=== PATIENT | female | born 1955 | race Caucasian/White ===

== ENCOUNTER 2017-04-17 19:44 | Emergency (ER) | payer BC ==
[~2017-04-17] VITALS: Ht 165.1 cm; Wt 106.1 kg
[~2017-04-17 19:44] MED LIST: ASPIR LOW81 MG PO; BUDEPRION SR150 M1 PO; FLEXERIL5 MG PO; GLIMEPIRIDE4 MG PO; HYDROCODONE BIT1 T11 PO; JANUVIA100 MG PO; PERINDOPRIL ERBU4 MG PO; PREDNICOT20 MG PO; REQUIP2 MG PO; [UNRECOGNIZED DRUG - REMARK]
[2017-04-17 20:19] VITALS: BP 143/65
[2017-04-17 20:55] LABS: BASO # 0.1 10*3/uL (0.0-0.1); BASO % 0.4 % (0.0-1.0); EOS # 0.2 10*3/uL (0.0-0.4); HEMOGLOBIN 14.5 g/dl (12.0-16.0); LYMPH # 2.3 10*3/uL (1.3-4.4); LYMPH % 13.6 % (27.0-41.0); MEAN CELL VOLUME 86.2 fl (81.0-99.0); MEAN CORPUSCULAR HGB 29.8 pg (27.0-31.0); MEAN CORPUSCULAR HGB CONC 34.5 g/dl (33.0-37.0); MEAN PLATELET VOLUME 10.3 fl (9.6-12.3); MONO # 0.5 10*3/uL (0.1-1.0); NEUT # 13.8 10*3/uL (2.3-7.9); NEUT % 81.3 % (47.0-73.0); PLATELET COUNT AUTOMATED 272 10*3/uL (130-400); RED BLOOD COUNT 4.87 10*6/uL (4.10-5.10); RED CELL DISTRI WIDTH 14.3 % (0-14.5); WHITE BLOOD COUNT 16.9 10*3/uL (4.8-10.8)
[2017-04-17 21:12] LABS: ALBUMIN 3.4 gm/dl (3.1-4.5); CREATININE 1.33 mg/dL (0.55-1.02); POTASSIUM 4.4 mmol/L (3.5-5.1); TOTAL PROTEIN 7.7 gm/dL (6.4-8.2)
[2017-04-17] MEDS ORDERED: SEPTDS PO (22:15)
== END 2017-04-17 22:20 | disposition home or self-care (01) ==
LOC: ED 19:44
PROVIDERS: Nurse Practitioner Family
DX: S40.022A Contusion of left upper arm, initial encounter (principal); Z88.0 Allergy status to penicillin; Z79.82 Long term (current) use of aspirin; Z79.899 Other long term (current) drug therapy; W19.XXXA Unspecified fall, initial encounter; Y93.89 Activity, other specified; Y92.89 Other specified places as the place of occurrence of the external cause; Y99.8 Other external cause status

== ENCOUNTER → 2017-04-27 | Outpatient (CLI) | payer BC ==
[~2017-04-27] MED LIST changes: +SEPTDS PO
== END | disposition home or self-care (01) ==
LOC: WOUNDCARE 00:41
DX: S51.802D Unspecified open wound of left forearm, subsequent encounter (principal); L02.414 Cutaneous abscess of left upper limb; L03.114 Cellulitis of left upper limb; I10 Essential (primary) hypertension; E10.9 Type 1 diabetes mellitus without complications; F32.9 Major depressive disorder, single episode, unspecified; X58.XXXD Exposure to other specified factors, subsequent encounter

== ENCOUNTER → 2017-05-01 | Outpatient (CLI) | payer BC | END | disposition home or self-care (01) | LOC: WOUNDCARE 03:56 | DX: L02.414 Cutaneous abscess of left upper limb (principal); L03.114 Cellulitis of left upper limb; I10 Essential (primary) hypertension; E10.9 Type 1 diabetes mellitus without complications; F32.9 Major depressive disorder, single episode, unspecified ==

== ENCOUNTER → 2017-05-11 | Outpatient (CLI) | payer BC | END | disposition home or self-care (01) | LOC: WOUNDCARE 00:33 | DX: L02.414 Cutaneous abscess of left upper limb (principal); I10 Essential (primary) hypertension; E10.9 Type 1 diabetes mellitus without complications; F32.9 Major depressive disorder, single episode, unspecified ==

== ENCOUNTER 2017-07-31 09:58 | Emergency (ER) | payer BC ==
[~2017-07-31] VITALS: Ht 157.4 cm; Wt 106.6 kg
[2017-07-31 09:58] VITALS: BP 153/91
[2017-07-31 10:51] LABS: BASO % 0.3 % (0.0-1.0); EOS # 0.2 10*3/uL (0.0-0.4); EOS % 1.3 % (1.0-4.0); HEMATOCRIT 43.5 % (37.0-47.0); HEMOGLOBIN 14.7 g/dl (12.0-16.0); LYMPH % 21.4 % (27.0-41.0); MEAN CELL VOLUME 85.1 fl (81.0-99.0); MEAN CORPUSCULAR HGB 28.8 pg (27.0-31.0); MEAN CORPUSCULAR HGB CONC 33.8 g/dl (33.0-37.0); MEAN PLATELET VOLUME 10.1 fl (9.6-12.3); MONO # 0.6 10*3/uL (0.1-1.0); MONO % 4.1 % (3.0-9.0); NEUT # 10.1 10*3/uL (2.3-7.9); NEUT % 72.4 % (47.0-73.0); PLATELET COUNT AUTOMATED 272 10*3/uL (130-400); RED BLOOD COUNT 5.11 10*6/uL (4.10-5.10); RED CELL DISTRI WIDTH 13.9 % (0-14.5); WHITE BLOOD COUNT 13.9 10*3/uL (4.8-10.8)
[2017-07-31 11:00] LABS: ACT PARTIAL THROMBO TIME 20.1 SECONDS (20.8-31.5); INTERNATIONAL NORM RATIO 0.9 (2.0-3.5)
[2017-07-31 11:06] LABS: ALBUMIN 3.8 gm/dl (3.1-4.5); ALKALINE PHOSPHATASE 104 U/L (45-117); BUN 13 mg/dl (7-24); CHLORIDE 99 mmol/L (98-107); CREATININE 0.97 mg/dL (0.55-1.02); POTASSIUM 4.2 mmol/L (3.5-5.1); SGOT/AST 24 IU/L (3-35); SGPT/ALT 29 U/L (12-78); SODIUM 134 mmol/L (136-145); TOTAL PROTEIN 7.8 gm/dL (6.4-8.2)
[2017-07-31 11:20] LABS: BILIRUBIN NEGATIVE (NEGATIVE); BLOOD 3+ (NEGATIVE); CLARITY CLOUDY (CLEAR); COLOR RED (YELLOW); GLUCOSE 3+ (NEGATIVE); KETONE 1+ (NEGATIVE); NITRITE NEGATIVE (NEGATIVE); SPECIFIC GRAVITY >= 1.030 (1.005-1.030)
[2017-07-31 11:27] LABS: LEUKO ESTERASE NEGATIVE (NEGATIVE); RBC TNTC rbc/hpf (0-2)
== END 2017-07-31 15:23 | disposition home or self-care (01) ==
LOC: ED 09:58
PROVIDERS: Emergency Medicine
DX: N93.8 Other specified abnormal uterine and vaginal bleeding (principal); R10.31 Right lower quadrant pain; E11.9 Type 2 diabetes mellitus without complications; Z98.890 Other specified postprocedural states; Z79.82 Long term (current) use of aspirin; Z79.899 Other long term (current) drug therapy; Z88.0 Allergy status to penicillin

== ENCOUNTER 2018-05-09 19:26 | Inpatient (IN) | payer BC ==
[~2018-05-09] VITALS: Ht 149.9 cm; Wt 100.4 kg
--- NOTE | ~2018-05-09 | EKG ---
[place], [place] ELECTROCARDIOGRAM REPORT NAME: JOSÉ MIGUEL ESTRADA UNIT #: [id number] ROOM: 518 DOCTOR: AMINTA DRAFT REPORT BIRTHDATE: [birth year] [facility] Test Date: 2018-05-09 Test Time: 21:54:56 Pat Name: JOSÉ MIGUEL ESTRADA Department: Room: 518 Gender: F Safety Attendant: EKG.NH : 1955 Requested By: JUSTINE CRUZ Order Number: [id number] Reading MD: Emily Torres MD Measurements Intervals [place] Rate: 100 P: 62 [place]: 186 QRS: 31 QRSD: 65 T: QT: 332 QTc: 429 Interpretive Statements Sinus tachycardia Supraventricular bigeminy Nonspecific T abnormalities, lateral leads Electronically Signed On 05-10-2018 15:31:46 PST by Emily Torres MD CM:EKGRPT:ELECTROCARDIOGRAM REPORT 1531 JUSTINE CRUZ EPIPHANY DRAFT REPORT JUSTINE CRUZ
--- NOTE | ~2018-05-09 | EKG ---
[place], [place] ELECTROCARDIOGRAM REPORT NAME: JOSÉ MIGUEL ESTRADA UNIT #: [id number] ROOM: 518 DOCTOR: AMINTA DRAFT REPORT BIRTHDATE: [birth year] [facility] Test Date: 2018-05-11 Test Time: 00:21:14 Pat Name: JOSÉ MIGUEL ESTRADA Department: Room: 518 1 Gender: F [place] Head: : 1955 Requested By: TOMER ROCKWELL Order Number: [id number] Reading MD: Emily Torres MD Measurements Intervals [place] Rate: 81 P: 57 [place]: 205 QRS: 27 QRSD: 64 T: 2 QT: 379 QTc: 440 Interpretive Statements Sinus rhythm Borderline T abnormalities, inferior leads Baseline wander in lead(s) V4 Compared to ECG 05/10/2018 07:07:15 Atrial premature complex(es) no longer present T-wave abnormality still present Electronically Signed On 05-11-2018 15:59:01 PST by Emily Torres MD CM:EKGRPT:ELECTROCARDIOGRAM REPORT 0021 1559 TOMER POE DRAFT REPORT TOMER ROCKWELL DO
--- NOTE | ~2018-05-09 | EKG ---
[place], [place] ELECTROCARDIOGRAM REPORT NAME: JOSÉ MIGUEL ESTRADA UNIT #: [id number] ROOM: 518 DOCTOR: AMINTA DRAFT REPORT BIRTHDATE: [birth year] [facility] Test Date: 2018-05-10 Test Time: 07:07:15 Pat Name: JOSÉ MIGUEL ESTRADA Department: Room: 518 1 Gender: F [place] Man: Coreen Larose : 1955 Requested By: JUSTINE CRUZ Order Number: [id number] Reading MD: Emily Torres MD Measurements Intervals [place] Rate: 84 P: 56 [place]: 200 QRS: 29 QRSD: 61 T: -5 QT: 370 QTc: 438 Interpretive Statements Sinus rhythm Atrial premature complex Borderline T abnormalities, inferior leads No previous ECG available for comparison Electronically Signed On 05-10-2018 15:34:25 PST by Emily Torres MD CM:EKGRPT:ELECTROCARDIOGRAM REPORT 1534 JUSTINE LEMOS DRAFT REPORT JUSTINE CRUZ
[2018-05-09 19:28] VITALS: BP 123/66
--- NOTE | 2018-05-09 20:01 | NUR ---
PATIENT STATES THAT SHE DOES NOT FEEL THE URGE TO VOID AT THIS TIME AND WISHES TO TAKE IN SOME IV FLUIDS PRIOR TO ATTEMPTING URINATION
[2018-05-09 20:06] LABS: HEMATOCRIT 42.7 % (37.0-47.0); HEMOGLOBIN 14.4 g/dl (12.0-16.0); MEAN CELL VOLUME 87.3 fl (81.0-99.0); MEAN CORPUSCULAR HGB 29.4 pg (27.0-31.0); MEAN CORPUSCULAR HGB CONC 33.7 g/dl (33.0-37.0); PLATELET COUNT AUTOMATED 178 10*3/uL (130-400); RED BLOOD COUNT 4.89 10*6/uL (4.10-5.10); RED CELL DISTRI WIDTH 14.3 % (0-14.5); WHITE BLOOD COUNT 17.9 10*3/uL (4.8-10.8)
[2018-05-09 20:30] LABS: ALBUMIN 3.3 gm/dl (3.1-4.5); ALKALINE PHOSPHATASE 84 U/L (45-117); BUN 17 mg/dl (7-24); CHLORIDE 102 mmol/L (98-107); CREATININE 0.85 mg/dL (0.55-1.02); LIPASE 87 U/L (73-393); POTASSIUM 3.8 mmol/L (3.5-5.1); SGOT/AST 19 IU/L (3-35); SGPT/ALT 22 U/L (12-78); SODIUM 136 mmol/L (136-145); TOTAL PROTEIN 7.6 gm/dL (6.4-8.2)
[2018-05-09 20:43] LABS: ATYPICAL LYMPHS 1 % (0-0); BASOPHILS 1 % (0-1); TOTAL CELLS COUNTED 100 #CELLS
[2018-05-09 20:44] LABS: PLATELET SUFFICIENCY NORMAL (NORMAL)
--- NOTE | 2018-05-09 20:47 | NUR ---
PATIENT STATES SHE STILL DOES NOT FEEL THE URGE TO VOID. DOES NOT WANT CATHETERIZATION.
[2018-05-09 21:34] LABS: BILIRUBIN NEGATIVE (NEGATIVE); BLOOD NEGATIVE (NEGATIVE); CLARITY CLEAR (CLEAR); COLOR YELLOW (YELLOW); GLUCOSE 2+ (NEGATIVE); KETONE 1+ (NEGATIVE); LEUKO ESTERASE NEGATIVE (NEGATIVE); NITRITE NEGATIVE (NEGATIVE); SPECIFIC GRAVITY 1.015 (1.005-1.030); UROBILINOGEN 0.2 E.U./dl (0.2-1.0)
[2018-05-09 21:42] LABS: BACTERIA 1+; EPITHELIAL CELLS 16-20; YEAST TRACE
[2018-05-09 22:35] VITALS: BP 130/52
--- NOTE | 2018-05-09 22:35 | NUR ---
A 62, admitted to 5E, under the services of TOMER Álvarez DO with a diagnosis of INTRACTABLE VOMITING/DEHYDRATION. Chief complaint is MULTIPLE COMPLAINTS. Patient arrived via stretcher from ER. Monitor applied. Initial assessment completed. Vital signs taken and recorded. TOMER ÁLVAREZ DO notified of admission to the unit. Orders received. See assessment for past medical history, medications and allergies. Patient and/or family oriented to unit. visitation policy reviewed. Clothing/patient valuable form completed. LISA FISHER
--- NOTE | 2018-05-09 23:15 | NUR ---
PRN TORADOL GIVEN FOR C/O EARACHE AND TYLENOL FOR TEMP OF 101.2, PATIENT TOLERATED WELL. CALL LIGHT IS WITHIN REACH.
[2018-05-10] VITALS: BP 118/52
[2018-05-10] MEDS ORDERED: ROPINIROLE HCL5 MG PO (00:17)
[2018-05-10] MEDS ORDERED: LANTUS SOL100 UNIT/1 SQ (00:19)
[2018-05-10] MEDS ORDERED: REQUIP5 MG PO (00:26)
--- NOTE | 2018-05-10 00:33 | NUR ---
MED REC UP TO DATE, DR. CRUZ AWARE. PATIENT IS ALSO REQUESTING NIGHT TIME REQUIP. SEE NEW ORDERS.
--- NOTE | 2018-05-10 03:41 | NUR ---
TEMP 98.8 ORAL.
[2018-05-10 07:41] LABS: BASO % 0.2 % (0.0-1.0); HEMATOCRIT 42.3 % (37.0-47.0); LYMPH # 1.3 10*3/uL (1.3-4.4); MEAN CELL VOLUME 88.9 fl (81.0-99.0); MEAN CORPUSCULAR HGB 29.4 pg (27.0-31.0); MEAN CORPUSCULAR HGB CONC 33.1 g/dl (33.0-37.0); MONO # 0.7 10*3/uL (0.1-1.0); MONO % 4.5 % (3.0-9.0); NEUT # 13.6 10*3/uL (2.3-7.9); NEUT % 86.9 % (47.0-73.0); PLATELET COUNT AUTOMATED 145 10*3/uL (130-400); RED BLOOD COUNT 4.76 10*6/uL (4.10-5.10); RED CELL DISTRI WIDTH 14.6 % (0-14.5); WHITE BLOOD COUNT 15.7 10*3/uL (4.8-10.8)
--- NOTE | 2018-05-10 08:08 | NUR ---
Nursing screen received and chart review completed. Patient admitted with vomitting, diarrhea and fever. At this time no OT indicated d/t illness. If patient declines in ADLs or safety in functional mobility, consider OT carlita. Megan Erwin OTR/L
[2018-05-10 08:09] LABS: BUN 17 mg/dl (7-24); CHLORIDE 106 mmol/L (98-107); CREATININE 0.79 mg/dL (0.55-1.02); POTASSIUM 4.2 mmol/L (3.5-5.1); SODIUM 138 mmol/L (136-145)
[2018-05-10 08:12] LABS: ACT PARTIAL THROMBO TIME 25.1 SECONDS (20.8-31.5)
[2018-05-10 08:13] LABS: CHOLESTEROL 127 mg/dL (<200); FREE T4 1.21 ng/dl (0.76-1.46); HDL CHOLESTEROL 50 mg/dl (40-60); LDL CHOLESTEROL 53 mg/dL (9-159); PHOSPHOROUS 2.9 mg/dL (2.5-4.9); TRIGLYCERIDES 118 mg/dl (<150); VLDL CHOLESTEROL 24 mg/dL (6-40)
[2018-05-10 09:27] LABS: VITAMIN D, 25-HYDROXY 35.6 ng/mL (30-100)
[2018-05-10 12:00] VITALS: BP 102/58
--- NOTE | 2018-05-10 13:16 | NUR ---
Contact Lens Inspector in to talk to patient. Patient states lives at HOME with ALONE. There are BASEMENT steps in the home. Physician: KIMBERLY [facility] [place] health services: NONE Patient's level of ADLs: MINIMAL ASSIST Patient has working utilities: YES DME: NONE Follow-up physician's appointment after d/c: WILL BE MADE BY HOSPITALIST NURSE DIRECTOR ON DISCHARGE Does patient want to access PORTAL?: NO Discharge plan PT STATES SHE LIVES AT HOME ALONE WITH HER DAUGHTER HELPING HER. STATES SHE IS MOSTLY INDEPENDENT IN HIS CARE. PT STATES SHE IS GOING TO HAVE SPINE SURGERY IN [place] BUT HAS TO HAVE SOME PHYSICAL THERAPY WHICH IS ALREADY SET UP BEFORE GOING.PT STATES SHE PLANS TO RETURN HOME ON DISCHARGE WITH NO NEW NEEDS WILL CONTINUE TO FOLLOW. STATES SHE WILL HAVE A RIDE HOME. PEDRITO ALVAREZ
--- NOTE | 2018-05-10 14:47 | NUR ---
NOTIFIED DR GARCIA THAT PT WAS REQUESTING "REAL FOOD".ORDER RECIEVED.
[2018-05-10 16:00] VITALS: BP 113/47
[2018-05-10 20:00] VITALS: BP 118/60
--- NOTE | 2018-05-10 21:21 | NUR ---
BLOOD GLUCOSE 149.
--- NOTE | 2018-05-10 23:54 | NUR ---
PATIENT IS C/O SHORTNESS OF BREATH WITH CHEST PRESSURE AT THIS TIME. PULSE O2 89% ON ROOM AIR. UP TO 98% WITH 2L O2 VIA NASAL CANNULA. CALL PLACED TO DR. ALVAREZ AT THIS TIME REQUESTING TO COME SEE PATIENT.
[2018-05-11] VITALS: BP 140/63
[2018-05-11 00:57] LABS: BASO % 0.2 % (0.0-1.0); EOS % 0.2 % (1.0-4.0); HEMATOCRIT 37.3 % (37.0-47.0); HEMOGLOBIN 12.2 g/dl (12.0-16.0); LYMPH # 1.2 10*3/uL (1.3-4.4); MEAN CELL VOLUME 89.4 fl (81.0-99.0); MEAN CORPUSCULAR HGB 29.3 pg (27.0-31.0); MEAN CORPUSCULAR HGB CONC 32.7 g/dl (33.0-37.0); MEAN PLATELET VOLUME 9.9 fl (9.6-12.3); MONO # 0.7 10*3/uL (0.1-1.0); MONO % 4.3 % (3.0-9.0); NEUT # 13.1 10*3/uL (2.3-7.9); NEUT % 86.8 % (47.0-73.0); PLATELET COUNT AUTOMATED 150 10*3/uL (130-400); RED BLOOD COUNT 4.17 10*6/uL (4.10-5.10); RED CELL DISTRI WIDTH 14.5 % (0-14.5); WHITE BLOOD COUNT 15.1 10*3/uL (4.8-10.8)
[2018-05-11 01:23] LABS: BUN 18 mg/dl (7-24); CHLORIDE 106 mmol/L (98-107); CREATININE 0.59 mg/dL (0.55-1.02); POTASSIUM 4.1 mmol/L (3.5-5.1); SODIUM 138 mmol/L (136-145); TROPONIN I 0.019 ng/ml (<0.045)
[2018-05-11 06:35] LABS: HEMATOCRIT 39.1 % (37.0-47.0); HEMOGLOBIN 12.9 g/dl (12.0-16.0); MEAN CELL VOLUME 88.9 fl (81.0-99.0); MEAN CORPUSCULAR HGB 29.3 pg (27.0-31.0); MEAN PLATELET VOLUME 10.2 fl (9.6-12.3); PLATELET COUNT AUTOMATED 156 10*3/uL (130-400); RED CELL DISTRI WIDTH 14.3 % (0-14.5); WHITE BLOOD COUNT 11.3 10*3/uL (4.8-10.8)
[2018-05-11 06:59] LABS: BUN 18 mg/dl (7-24); CHLORIDE 104 mmol/L (98-107); CREATININE 0.62 mg/dL (0.55-1.02); POTASSIUM 4.6 mmol/L (3.5-5.1); SODIUM 137 mmol/L (136-145)
[2018-05-11 08:00] VITALS: BP 140/80
[2018-05-11 08:13] LABS: PLATELET SUFFICIENCY NORMAL (NORMAL); TOTAL CELLS COUNTED 100 #CELLS
--- NOTE | 2018-05-11 08:25 | NUR ---
Patient is tearful and showing signs of anxiety. She states "people have asked me if I take anything for anxiety but I don't." She is overwhelmed with her current health status. She becomes SOB. SpO2 is 97% on 2L.
--- NOTE | 2018-05-11 11:25 | NUR ---
PT CONTINUES TO DENY ANY HOME NEEDS ON DISCHARGE. WILL CONTINUE TO FOLLOW.
[2018-05-11 12:00] VITALS: BP 144/83
[2018-05-11 16:00] VITALS: BP 148/66
[2018-05-11 20:00] VITALS: BP 133/67
[2018-05-12] VITALS: BP 117/57
--- NOTE | 2018-05-12 01:25 | NUR ---
24 HR chart check completed.
[2018-05-12 06:53] LABS: BASO % 0.1 % (0.0-1.0); EOS % 0.3 % (1.0-4.0); HEMATOCRIT 39.3 % (37.0-47.0); HEMOGLOBIN 12.6 g/dl (12.0-16.0); LYMPH # 1.5 10*3/uL (1.3-4.4); LYMPH % 10.4 % (27.0-41.0); MEAN CELL VOLUME 88.9 fl (81.0-99.0); MEAN CORPUSCULAR HGB 28.5 pg (27.0-31.0); MEAN CORPUSCULAR HGB CONC 32.1 g/dl (33.0-37.0); MEAN PLATELET VOLUME 10.5 fl (9.6-12.3); MONO # 0.7 10*3/uL (0.1-1.0); NEUT % 83.7 % (47.0-73.0); PLATELET COUNT AUTOMATED 176 10*3/uL (130-400); RED BLOOD COUNT 4.42 10*6/uL (4.10-5.10); WHITE BLOOD COUNT 14.3 10*3/uL (4.8-10.8)
[2018-05-12 07:11] LABS: BUN 21 mg/dl (7-24); CHLORIDE 108 mmol/L (98-107); CREATININE 0.55 mg/dL (0.55-1.02); POTASSIUM 3.7 mmol/L (3.5-5.1); SODIUM 140 mmol/L (136-145)
--- NOTE | 2018-05-12 08:25 | NUR ---
Patient states that if she goes home today she will be right back in here tonight. She states that she was coughing all night long and cough was productive. Patient became tearful.
[2018-05-12 12:00] VITALS: BP 148/70
--- NOTE | 2018-05-12 15:44 | NUR ---
Spoke with Dr. Das to see if it was ok for patient to remove panel monitor to shower. Per physician, do to CT scan results he would rather her hold off on showering today.
[2018-05-12 17:26] VITALS: BP 147/78
[2018-05-12 20:00] VITALS: BP 142/76
--- NOTE | 2018-05-12 21:47 | NUR ---
Patient's SpO2 drops to 88% on RA while ambulating to toilet. Patient immediately rebounds to 98% on 2LNC.
--- NOTE | 2018-05-12 22:50 | NUR ---
Patients IV site is positional.
[2018-05-13] VITALS: BP 136/64
[2018-05-13 08:00] VITALS: BP 134/72
--- NOTE | 2018-05-13 10:57 | NUR ---
PHYSICAL THERAPY Nursing screen received. Chart review complete. Recommend normal daily mobility with nursing prn. If difficulties with mobilty arise, please order PT when medically appropriate. Thank you. Daisy Quintana,PT
[2018-05-13 12:00] VITALS: BP 148/64
[2018-05-13] MEDS ORDERED: DOXYCYCLINE100 M3 PO (12:34)
[2018-05-13] MEDS ORDERED: PREDNISONE10 MG PO (12:34)
[2018-05-13 16:00] VITALS: BP 132/65
[2018-05-13 20:00] VITALS: BP 128/67
[2018-05-14] VITALS: BP 159/90
--- NOTE | 2018-05-14 07:00 | NUR ---
BEDSIDE REPORT OTBAINED FROM JUAN-ALTAF. PATIENT IS RESTING IN BED, EYES CLOSED. NO S&S OF DISTRESS NOTED, RESP ARE ERND ON O2 2LPM NC. BED IS LOCKED IN LOWEST POSITION, CALL LIGHT LEFT WITHIN REACH.
[2018-05-14 08:00] VITALS: BP 132/78
--- NOTE | 2018-05-14 09:00 | NUR ---
ASSESS FOR HOME OXYGEN: ROOM AIR AT REST: SPO2 92% HR 116 RR 20 BP 132/78 ROOM AIR WITH AMBULATION: SPO2 87% HR 138 RR 26 SUPPLEMENTAL O2 AT 2L WITH AMBULATION: SPO2 93-95% HR 120-130 RR 24 RECOVERY ON 2L: SPO2 95% HR 112 RR 20 BP 149/76
--- NOTE | 2018-05-14 09:30 | NUR ---
IN TO SEE PATIENT AT BEDSIDE. STATES ITS OK FOR PATIENT TO TAKE OFF MONITORS FOR SHOWER.
--- NOTE | 2018-05-14 11:35 | NUR ---
PT CONTINUES TO DENY NEEDS ON DISCHARGE. WILL CONTINUE TO FOLLOW.
[2018-05-14 12:00] VITALS: BP 152/78
[2018-05-14 16:00] VITALS: BP 159/88
--- NOTE | 2018-05-14 16:35 | NUR ---
Discharge instructions reviewed with patient/family. Patient receptive and verbalizes understanding. Follow-up care TO BE arranged BY PATIENT. Written instructions given to patient/family. IV CATHETER REMOVED, I&C TECHNICIAN ACCOUNTED FOR AND PLACED IN BIN. KANIKA RUDOLPH
== END 2018-05-14 16:35 | disposition home or self-care (01) | DRG 871 ==
LOC: ED 19:26 → 5E 21:02 → EDHOLD 21:02 → 5E 22:01
PROVIDERS: Internal Medicine; Student in an Organized Health Care Education/Training Program; ADMIT Internal Medicine
DX: A41.9 Sepsis, unspecified organism (principal); J18.9 Pneumonia, unspecified organism; E44.1 Mild protein-calorie malnutrition; Z68.41 Body mass index [BMI] 40.0-44.9, adult; L03.90 Cellulitis, unspecified; H65.191 Other acute nonsuppurative otitis media, right ear; E86.0 Dehydration; E11.65 Type 2 diabetes mellitus with hyperglycemia; R80.9 Proteinuria, unspecified; R82.4 Acetonuria; R81 Glycosuria; M41.9 Scoliosis, unspecified; E66.01 Morbid (severe) obesity due to excess calories; G25.81 Restless legs syndrome; I10 Essential (primary) hypertension; K52.9 Noninfective gastroenteritis and colitis, unspecified; Z88.0 Allergy status to penicillin; Z98.891 History of uterine scar from previous surgery; Z98.42 Cataract extraction status, left eye; Z83.3 Family history of diabetes mellitus; Z82.49 Family history of ischemic heart disease and other diseases of the circulatory system; Z87.891 Personal history of nicotine dependence; Z82.3 Family history of stroke; Z80.6 Family history of leukemia; Z79.4 Long term (current) use of insulin

== ENCOUNTER 2018-05-26 08:30 | Emergency (ER) | payer BC ==
[~2018-05-26] VITALS: Ht 149.8 cm; Wt 95.3 kg
[~2018-05-26 08:30] MED LIST changes: +DOXYCYCLINE100 M3 PO; +LANTUS SOL100 UNIT/1 SQ; +PREDNISONE10 MG PO; +REQUIP5 MG PO; +ROPINIROLE HCL5 MG PO
[2018-05-26 08:32] VITALS: BP 143/74
[2018-05-26 09:14] LABS: BILIRUBIN NEGATIVE (NEGATIVE); BLOOD 1+ (NEGATIVE); CLARITY SL CLOUDY (CLEAR); COLOR YELLOW (YELLOW); GLUCOSE 2+ (NEGATIVE); KETONE TRACE (NEGATIVE); LEUKO ESTERASE TRACE (NEGATIVE); NITRITE NEGATIVE (NEGATIVE); UROBILINOGEN 0.2 E.U./dl (0.2-1.0)
[2018-05-26 09:21] LABS: BACTERIA 1+; EPITHELIAL CELLS 20-25; RBC 21-30 rbc/hpf (0-2); YEAST 1+
[2018-05-26 09:27] LABS: HEMATOCRIT 45.6 % (37.0-47.0); HEMOGLOBIN 15.5 g/dl (12.0-16.0); MEAN CELL VOLUME 86.2 fl (81.0-99.0); MEAN CORPUSCULAR HGB 29.3 pg (27.0-31.0); MEAN PLATELET VOLUME 10.2 fl (9.6-12.3); PLATELET COUNT AUTOMATED 219 10*3/uL (130-400); RED BLOOD COUNT 5.29 10*6/uL (4.10-5.10); RED CELL DISTRI WIDTH 13.3 % (0-14.5); WHITE BLOOD COUNT 23.3 10*3/uL (4.8-10.8)
[2018-05-26 09:55] LABS: BASOPHILS 1 % (0-1); PLATELET SUFFICIENCY NORMAL (NORMAL); TOTAL CELLS COUNTED 100 #CELLS
[2018-05-26 10:05] LABS: ALBUMIN 3.8 gm/dl (3.1-4.5); CREATININE 1.32 mg/dL (0.55-1.02); POTASSIUM 4.1 mmol/L (3.5-5.1)
[2018-05-26] MEDS ORDERED: LEVOFLOXACIN250 M2 PO (10:59)
[2018-05-26] MEDS ORDERED: ZOFRAN4 MG PO (11:15)
== END 2018-05-26 11:05 | disposition home or self-care (01) ==
LOC: ED 08:30
PROVIDERS: Emergency Medicine
DX: N39.0 Urinary tract infection, site not specified (principal); R60.0 Localized edema; G89.29 Other chronic pain; I10 Essential (primary) hypertension; E11.9 Type 2 diabetes mellitus without complications; E44.1 Mild protein-calorie malnutrition; E66.01 Morbid (severe) obesity due to excess calories; Z68.41 Body mass index [BMI] 40.0-44.9, adult; Z88.8 Allergy status to other drugs, medicaments and biological substances; Z88.0 Allergy status to penicillin; Z79.4 Long term (current) use of insulin; Z79.899 Other long term (current) drug therapy; Z79.2 Long term (current) use of antibiotics; Z87.891 Personal history of nicotine dependence

== ENCOUNTER → 2018-06-27 | Outpatient (CLI) | payer BC ==
[~2018-06-27] MED LIST changes: +LEVOFLOXACIN250 M2 PO; +ZOFRAN4 MG PO
[2018-06-27 13:50] LABS: ACT PARTIAL THROMBO TIME 21.3 SECONDS (20.8-31.5); INTERNATIONAL NORM RATIO 0.9 (2.0-3.5)
== END | disposition home or self-care (01) ==
LOC: LAB 13:10
PROVIDERS: Urology
DX: R31.9 Hematuria, unspecified (principal)

== ENCOUNTER → 2018-07-06 | Outpatient (CLI) | payer BC ==
[2018-07-06 11:09] LABS: BASO % 0.4 % (0.0-1.0); EOS # 0.2 10*3/uL (0.0-0.4); EOS % 1.9 % (1.0-4.0); HEMATOCRIT 36.6 % (37.0-47.0); HEMOGLOBIN 12.2 g/dl (12.0-16.0); LYMPH # 2.6 10*3/uL (1.3-4.4); LYMPH % 24.2 % (27.0-41.0); MEAN CELL VOLUME 87.6 fl (81.0-99.0); MEAN CORPUSCULAR HGB 29.2 pg (27.0-31.0); MEAN CORPUSCULAR HGB CONC 33.3 g/dl (33.0-37.0); MEAN PLATELET VOLUME 10.4 fl (9.6-12.3); MONO # 0.5 10*3/uL (0.1-1.0); MONO % 4.4 % (3.0-9.0); NEUT # 7.3 10*3/uL (2.3-7.9); NEUT % 68.6 % (47.0-73.0); PLATELET COUNT AUTOMATED 244 10*3/uL (130-400); RED BLOOD COUNT 4.18 10*6/uL (4.10-5.10); RED CELL DISTRI WIDTH 14.8 % (0-14.5); WHITE BLOOD COUNT 10.6 10*3/uL (4.8-10.8)
[2018-07-06 11:44] LABS: ALBUMIN 3.6 gm/dl (3.1-4.5); ALKALINE PHOSPHATASE 88 U/L (45-117); BUN 25 mg/dl (7-24); CHLORIDE 105 mmol/L (98-107); CREATININE 0.92 mg/dL (0.55-1.02); POTASSIUM 4.5 mmol/L (3.5-5.1); SGOT/AST 20 IU/L (3-35); SGPT/ALT 21 U/L (12-78); SODIUM 138 mmol/L (136-145); T3 UPTAKE 34 % (31-39); THYROXINE (T4) TOTAL 11.7 ug/dl (4.8-13.9); TOTAL PROTEIN 7.3 gm/dL (6.4-8.2)
== END | disposition home or self-care (01) ==
LOC: LAB 08:37 → RAD 08:37
PROVIDERS: Urology
DX: Z09 Encounter for follow-up examination after completed treatment for conditions other than malignant neoplasm (principal); E83.50 Unspecified disorder of calcium metabolism; R31.9 Hematuria, unspecified; Z96.0 Presence of urogenital implants

== ENCOUNTER → 2018-07-14 | Outpatient (CLI) | payer BC | END | disposition home or self-care (01) | LOC: CT 07-12 09:00 | DX: N20.0 Calculus of kidney (principal) ==

== ENCOUNTER → 2018-08-16 | Outpatient (CLI) | payer MEDICARE ==
[2018-08-16 14:14] LABS: BILIRUBIN NEGATIVE (NEGATIVE); BLOOD NEGATIVE (NEGATIVE); CLARITY CLEAR (CLEAR); COLOR YELLOW (YELLOW); GLUCOSE NEGATIVE (NEGATIVE); KETONE NEGATIVE (NEGATIVE); LEUKO ESTERASE TRACE (NEGATIVE); NITRITE NEGATIVE (NEGATIVE); PH 5.5 (5.0-9.0); SPECIFIC GRAVITY <= 1.005 (1.005-1.030); UROBILINOGEN 0.2 E.U./dl (0.2-1.0)
[2018-08-16 14:23] LABS: BASO % 0.3 % (0.0-1.0); EOS # 0.2 10*3/uL (0.0-0.4); EOS % 1.3 % (1.0-4.0); HEMATOCRIT 39.3 % (37.0-47.0); HEMOGLOBIN 13.4 g/dl (12.0-16.0); LYMPH # 2.7 10*3/uL (1.3-4.4); LYMPH % 19.8 % (27.0-41.0); MEAN CELL VOLUME 87.9 fl (81.0-99.0); MEAN CORPUSCULAR HGB CONC 34.1 g/dl (33.0-37.0); MEAN PLATELET VOLUME 11.3 fl (9.6-12.3); MONO # 0.6 10*3/uL (0.1-1.0); MONO % 4.4 % (3.0-9.0); NEUT # 10.1 10*3/uL (2.3-7.9); NEUT % 73.8 % (47.0-73.0); PLATELET COUNT AUTOMATED 204 10*3/uL (130-400); RED BLOOD COUNT 4.47 10*6/uL (4.10-5.10); RED CELL DISTRI WIDTH 13.8 % (0-14.5); WHITE BLOOD COUNT 13.7 10*3/uL (4.8-10.8)
[2018-08-16 14:27] LABS: BACTERIA 1+
[2018-08-16 14:45] LABS: ALBUMIN 3.8 gm/dl (3.1-4.5); ALKALINE PHOSPHATASE 94 U/L (45-117); BUN 13 mg/dl (7-24); CHLORIDE 106 mmol/L (98-107); CREATININE 0.79 mg/dL (0.55-1.02); POTASSIUM 3.9 mmol/L (3.5-5.1); SGOT/AST 15 IU/L (3-35); SGPT/ALT 20 U/L (12-78); SODIUM 141 mmol/L (136-145); T3 UPTAKE 37 % (31-39); THYROXINE (T4) TOTAL 12.2 ug/dl (4.8-13.9); TOTAL PROTEIN 7.8 gm/dL (6.4-8.2)
== END | disposition home or self-care (01) ==
LOC: US 12:36
PROVIDERS: Urology
DX: N20.0 Calculus of kidney (principal)

== ENCOUNTER → 2018-09-11 | Outpatient (CLI) | payer MEDICARE ==
--- NOTE | ~2018-09-11 | EKG ---
[place], [place] ELECTROCARDIOGRAM REPORT NAME: JOSÉ MIGUEL ESTRADA UNIT #: [id number] ROOM: DOCTOR: EPIPHANY DRAFT REPORT BIRTHDATE: [birth year] [facility] Test Date: 2018-09-11 Test Time: 08:42:33 Pat Name: JOSÉ MIGUEL ESTRADA Department: Room: Gender: F Borematic Operator: Imani Martínez : 1955 Requested By: ESA CHAIDEZ Order Number: [id number] Reading MD: Denis Alvarez MD Measurements Intervals [place] Rate: 68 P: 49 [place]: 192 QRS: 38 QRSD: 66 T: -48 QT: 418 QTc: 445 Interpretive Statements Sinus rhythm Nonspecific T abnormalities, diffuse leads Compared to ECG 05/27/2018 07:52:26 Sinus tachycardia no longer present Atrial premature complex(es) no longer present T-wave abnormality still present Electronically Signed On 09-18-2018 4:00:13 PDT by Denis Alvarez MD CM:EKGRPT:ELECTROCARDIOGRAM REPORT 0842 0400 ESA CHAIDEZ EPIPHNOHEMI DRAFT REPORT ESA CHAIDEZ
[2018-09-11 08:47] LABS: BASO % 0.3 % (0.0-1.0); EOS # 0.1 10*3/uL (0.0-0.4); EOS % 1.3 % (1.0-4.0); HEMATOCRIT 39.2 % (37.0-47.0); HEMOGLOBIN 12.9 g/dl (12.0-16.0); LYMPH # 2.4 10*3/uL (1.3-4.4); LYMPH % 23.9 % (27.0-41.0); MEAN CELL VOLUME 89.1 fl (81.0-99.0); MEAN CORPUSCULAR HGB 29.3 pg (27.0-31.0); MEAN CORPUSCULAR HGB CONC 32.9 g/dl (33.0-37.0); MEAN PLATELET VOLUME 10.3 fl (9.6-12.3); MONO # 0.5 10*3/uL (0.1-1.0); MONO % 5.2 % (3.0-9.0); NEUT # 6.8 10*3/uL (2.3-7.9); NEUT % 68.8 % (47.0-73.0); PLATELET COUNT AUTOMATED 215 10*3/uL (130-400); RED CELL DISTRI WIDTH 13.3 % (0-14.5); WHITE BLOOD COUNT 9.9 10*3/uL (4.8-10.8)
[2018-09-11 09:14] LABS: ALBUMIN 3.4 gm/dl (3.1-4.5); ALKALINE PHOSPHATASE 81 U/L (45-117); BUN 13 mg/dl (7-24); CHLORIDE 106 mmol/L (98-107); CREATININE 0.71 mg/dL (0.55-1.02); POTASSIUM 3.9 mmol/L (3.5-5.1); SGOT/AST 18 IU/L (3-35); SGPT/ALT 21 U/L (12-78); SODIUM 141 mmol/L (136-145)
[2018-09-11 10:02] LABS: BILIRUBIN NEGATIVE (NEGATIVE); BLOOD NEGATIVE (NEGATIVE); CLARITY SL CLOUDY (CLEAR); COLOR YELLOW (YELLOW); GLUCOSE NEGATIVE (NEGATIVE); KETONE NEGATIVE (NEGATIVE); LEUKO ESTERASE 1+ (NEGATIVE); NITRITE NEGATIVE (NEGATIVE); PH 5.5 (5.0-9.0); SPECIFIC GRAVITY 1.025 (1.005-1.030); UROBILINOGEN 0.2 E.U./dl (0.2-1.0)
[2018-09-11 10:21] LABS: BACTERIA 2+; RBC 0-2 rbc/hpf (0-2); WBC 16-20 wbc/hpf (0-5)
== END | disposition home or self-care (01) ==
LOC: LAB 08:07
PROVIDERS: Neurological Surgery
DX: Z01.818 Encounter for other preprocedural examination (principal); J44.9 Chronic obstructive pulmonary disease, unspecified; M41.86 Other forms of scoliosis, lumbar region; E11.9 Type 2 diabetes mellitus without complications; Z79.899 Other long term (current) drug therapy

== ENCOUNTER 2018-11-29 19:22 | Inpatient (IN) | payer MEDICARE ==
[~2018-11-29] VITALS: Ht 152.4 cm; Wt 100.4 kg
[2018-11-29 19:25] VITALS: BP 131/58
[2018-11-29 21:20] LABS: BILIRUBIN NEGATIVE (NEGATIVE); BLOOD NEGATIVE (NEGATIVE); CLARITY CLEAR (CLEAR); COLOR YELLOW (YELLOW); GLUCOSE 2+ (NEGATIVE); KETONE NEGATIVE (NEGATIVE); LEUKO ESTERASE NEGATIVE (NEGATIVE); NITRITE NEGATIVE (NEGATIVE); PH 6.5 (5.0-9.0); UROBILINOGEN 0.2 E.U./dl (0.2-1.0)
[2018-11-29 21:36] LABS: BASO % 0.3 % (0.0-1.0); EOS # 0.1 10*3/uL (0.0-0.4); EOS % 1.1 % (1.0-4.0); HEMATOCRIT 38.9 % (37.0-47.0); LYMPH # 2.2 10*3/uL (1.3-4.4); LYMPH % 22.8 % (27.0-41.0); MEAN CELL VOLUME 86.4 fl (81.0-99.0); MEAN CORPUSCULAR HGB 28.9 pg (27.0-31.0); MEAN CORPUSCULAR HGB CONC 33.4 g/dl (33.0-37.0); MEAN PLATELET VOLUME 10.3 fl (9.6-12.3); MONO # 0.3 10*3/uL (0.1-1.0); MONO % 3.3 % (3.0-9.0); NEUT # 6.8 10*3/uL (2.3-7.9); NEUT % 72.1 % (47.0-73.0); PLATELET COUNT AUTOMATED 217 10*3/uL (130-400); WHITE BLOOD COUNT 9.4 10*3/uL (4.8-10.8)
[2018-11-29 21:51] LABS: ALBUMIN 3.4 gm/dl (3.1-4.5); ALKALINE PHOSPHATASE 109 U/L (45-117); BUN 13 mg/dl (7-24); CHLORIDE 102 mmol/L (98-107); CREATININE 1.06 mg/dL (0.55-1.02); POTASSIUM 4.1 mmol/L (3.5-5.1); SGOT/AST 14 IU/L (3-35); SGPT/ALT 20 U/L (12-78); SODIUM 138 mmol/L (136-145); TOTAL PROTEIN 7.1 gm/dL (6.4-8.2)
--- NOTE | 2018-11-29 22:46 | NUR ---
PT TO HAVE ULTRASOUND OF LOWER LEFT EXTREMITY PRIOR TO BEING TAKEN TO UNIT.
--- NOTE | 2018-11-29 22:54 | NUR ---
PHARMACY CALLED FOR ORDER OF MEROPENEM.
--- NOTE | 2018-11-29 23:55 | NUR ---
PER NEREYDA JOHNSON,PT ULTRASOUND SCHEDULED FOR AM.
--- NOTE | 2018-11-29 23:57 | NUR ---
INFUSION OF MEROPENEM COMPLETED AND INFUSION OF VANCOMYCIN INITIATED.
[2018-11-30] VITALS: BP 154/66
[2018-11-30 00:03] VITALS: BP 135/56
--- NOTE | 2018-11-30 00:15 | NUR ---
A 63 YEAR OLD FEMALE admitted to , under the services of DMITRY Dumas DO with a diagnosis of CELLULITIS. Chief complaint is .INJURY LEFT ORDAZ Patient arrived via stretcher from ER. Monitor applied. Initial assessment completed. Vital signs taken and recorded. DMITRY DUMAS DO notified of admission to the unit. Orders received. See assessment for past medical history, medications and allergies. Patient and/or family oriented to unit. [facility] visitation policy reviewed. Clothing/patient valuable form completed. ALEJANDRA ROSENBERG
--- NOTE | 2018-11-30 01:38 | NUR ---
AREA ON FRONT OF LEFT ORDAZ IS RED IN APPEARANCE WITH SL EDEMA NOTED. PT RESTING IN BED WITH HOB ELEVATED. CALL LIGHT IN REACH. FLUID BOLUSES INFUSING WELL. NO DISTRESS NOTED.
--- NOTE | 2018-11-30 02:26 | NUR ---
0200 TO XRAY [facility] FOR CTA. WHILE THERE, IV SITE LATA INFILTRATED. 0215 IV SITE LATA DC'ED. UNSUCCESSFUL IV START ATTEMPTS X'S 2.
--- NOTE | 2018-11-30 06:14 | NUR ---
RESTING IN BED WITH EYES CLOSED. APPEARS TO BE SLEEPING. IV FLUIDS CONT. NO DISTRESS NOTED.
[2018-11-30 06:32] LABS: BASO % 0.2 % (0.0-1.0); EOS # 0.1 10*3/uL (0.0-0.4); EOS % 1.3 % (1.0-4.0); HEMATOCRIT 36.8 % (37.0-47.0); HEMOGLOBIN 12.1 g/dl (12.0-16.0); LYMPH # 2.1 10*3/uL (1.3-4.4); LYMPH % 22.8 % (27.0-41.0); MEAN CORPUSCULAR HGB 28.9 pg (27.0-31.0); MEAN CORPUSCULAR HGB CONC 32.9 g/dl (33.0-37.0); MEAN PLATELET VOLUME 11.4 fl (9.6-12.3); MONO # 0.3 10*3/uL (0.1-1.0); MONO % 3.7 % (3.0-9.0); NEUT # 6.5 10*3/uL (2.3-7.9); NEUT % 71.4 % (47.0-73.0); PLATELET COUNT AUTOMATED 167 10*3/uL (130-400); RED BLOOD COUNT 4.18 10*6/uL (4.10-5.10); RED CELL DISTRI WIDTH 14.1 % (0-14.5); WHITE BLOOD COUNT 9.1 10*3/uL (4.8-10.8)
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
[2018-11-30 07:10] LABS: ALKALINE PHOSPHATASE 95 U/L (45-117); BUN 12 mg/dl (7-24); CHLORIDE 107 mmol/L (98-107); CREATININE 0.78 mg/dL (0.55-1.02); SGOT/AST 13 IU/L (3-35); SGPT/ALT 16 U/L (12-78); SODIUM 139 mmol/L (136-145); TOTAL PROTEIN 6.3 gm/dL (6.4-8.2)
--- NOTE | 2018-11-30 07:10 | NUR ---
ARRIVED ON SHIFT, INTRODUCED TO PATIENT BEDSIDE REPORT RECEIVED, NO NEEDS VOICED AT THIS TIME, WHITE BOARD UPDATED.
[2018-11-30 08:00] VITALS: BP 123/61
--- NOTE | 2018-11-30 08:27 | NUR ---
Dr. Lopez notified of wound care recommendations.
--- NOTE | 2018-11-30 08:48 | NUR ---
Recommend follow up for wound care in outpatient setting patient refused at this time.
[2018-11-30 12:00] VITALS: BP 143/64
--- NOTE | 2018-11-30 12:13 | NUR ---
Cover Making Machine Operator in to talk to patient. Patient states lives at HOME with ALONE. There are FEW steps in the home. Physician: CLEOPATRA HARRIS Pharmacy: [facility] health services: NONE Patient's level of ADLs: INDEPENDENT Patient has working utilities: YES DME: MARII Follow-up physician's appointment after d/c: WILL BE MADE BY HOSPITALIST NURSE DIRECTOR ON DISCHARGE Does patient want to access PORTAL?: NO Discharge plan PT LIVES AT HOME ALONE AND IS INDEPENDENT IN HER CARE. DENIES SHE WILL HAVE ANY NEEDS ON DISCHARGE AT THIS TIME. STATES SHE IS SCHEDULED FOR SURGERY IN [place] FOR SCOLOSIS ON December. WILL CONTINUE TO FOLLOW. WILL HAVE A RIDE HOME PER PT. . PEDRITO ALVAREZ
--- NOTE | 2018-11-30 15:51 | NUR ---
Shift chart check completed.
[2018-11-30 16:00] VITALS: BP 147/42
--- NOTE | 2018-11-30 18:11 | NUR ---
CALL PLACED TO DR. SALAZAR, ORDER FOR MINESH ARELLANO RECEIVED.
--- NOTE | 2018-11-30 18:48 | NUR ---
PATIENT C/O BACK PAIN 09/12 MEDICATED WITH NORCO ORDERED
[2018-11-30 20:00] VITALS: BP 137/49
[2018-12-01] VITALS: BP 124/53
--- NOTE | 2018-12-01 04:01 | NUR ---
[place] given per patient request for c/o chronic lower back pain rated 5/10. Will monitor.
--- NOTE | 2018-12-01 04:40 | NUR ---
[place] effective. Patient asleep with respirations >12.
[2018-12-01 06:15] LABS: BASO % 0.3 % (0.0-1.0); EOS # 0.1 10*3/uL (0.0-0.4); EOS % 1.8 % (1.0-4.0); HEMATOCRIT 36.5 % (37.0-47.0); HEMOGLOBIN 12.1 g/dl (12.0-16.0); LYMPH # 1.8 10*3/uL (1.3-4.4); LYMPH % 22.9 % (27.0-41.0); MEAN CELL VOLUME 86.5 fl (81.0-99.0); MEAN CORPUSCULAR HGB 28.7 pg (27.0-31.0); MEAN CORPUSCULAR HGB CONC 33.2 g/dl (33.0-37.0); MEAN PLATELET VOLUME 10.3 fl (9.6-12.3); MONO # 0.3 10*3/uL (0.1-1.0); MONO % 3.7 % (3.0-9.0); NEUT # 5.6 10*3/uL (2.3-7.9); NEUT % 70.7 % (47.0-73.0); PLATELET COUNT AUTOMATED 196 10*3/uL (130-400); RED BLOOD COUNT 4.22 10*6/uL (4.10-5.10); WHITE BLOOD COUNT 7.9 10*3/uL (4.8-10.8)
[2018-12-01 06:43] LABS: BUN 9 mg/dl (7-24); CHLORIDE 108 mmol/L (98-107); SODIUM 141 mmol/L (136-145)
[2018-12-01 06:47] LABS: ALKALINE PHOSPHATASE 92 U/L (45-117); SGOT/AST 12 IU/L (3-35); SGPT/ALT 15 U/L (12-78); TOTAL PROTEIN 6.4 gm/dL (6.4-8.2)
[2018-12-01 08:00] VITALS: BP 136/51
[2018-12-01 12:00] VITALS: BP 132/52
[2018-12-01 16:00] VITALS: BP 149/62
[2018-12-01 20:00] VITALS: BP 159/62
--- NOTE | 2018-12-01 21:00 | NUR ---
PATIENT MEDICATED WITH NORCO FOR COMPLAINTS OF LEG PAIN. WILL CONTINUE TO MONITOR. CALL LIGHT IN REACH.
[2018-12-02] VITALS: BP 148/59
--- NOTE | 2018-12-02 05:15 | NUR ---
BSG-112, SEE EMAR. NO C/O AT THIS TIME. IVF INFUSING WITH NO PROBLEM. CALL LIGHT IN REACH.
[2018-12-02 08:00] VITALS: BP 141/62
--- NOTE | 2018-12-02 10:30 | NUR ---
Discharge instructions reviewed with patient/family. Patient receptive and verbalizes understanding. Follow-up care arranged. Written instructions given to patient/family. HEPLOCK REMOVED 2X2 APPLIED. HOLTER REMOVED. NELY STEWART
[2018-12-02 12:00] VITALS: BP 135/56
--- NOTE | 2018-12-02 14:30 | NUR ---
PT RESTING INB ED. NO C/O AT THIS TIME. CALL LIGHT IN REACH. IVF INFUSING WITH NO PROBLEM.
[2018-12-02 16:00] VITALS: BP 149/69
--- NOTE | 2018-12-02 16:00 | NUR ---
BSG-164, SEE EMAR. IVF INFUSING WITH NO PROBLEM. NO C/O AT THIS TIME. CALL LIGHT IN REACH.
--- NOTE | 2018-12-02 18:00 | NUR ---
SITTING UP IN BED. NO C/O AT THIS TIME. CALL LIGHT IN REACH.
--- NOTE | 2018-12-02 19:10 | NUR ---
PT IS AWAKE AND SITTING UP IN BED AT THIS TIME. SHE STATES THAT SHE IS FEELING MUCH BETTER THAN WHEN SHE FIRST CAME IN. LEFT ORDAZ IS STILL RED AND SLIGHTLY WARM TO THE TOUCH. RIGHT ORDAZ WOUND HAS A CLEAN DRY AND INTACT DRESSING. EDUCATION PROVIDED ON IV ANTIBIOTICS WELL PLAN OF CARE. PATIENT VERBALIZES UNDERSTANDING. NO NEW C/O VOICED. BED IS LOW, CALL LIGHT WITHIN REACH. WILL CONTINUE TO MONITOR.
--- NOTE | 2018-12-02 19:33 | NUR ---
24 HR CHART CHECK COMPLETE.
[2018-12-02 20:00] VITALS: BP 148/52
[2018-12-03] VITALS: BP 134/45
[2018-12-03 08:00] VITALS: BP 149/53
--- NOTE | 2018-12-03 08:00 | NUR ---
PT RESTING IN BED. RESP-EASY AND REGULAR. IVF INFUSING WITH NO PROBLEM. NO C/O AT THIS TIME. CALL LIGHT IN REACH. SEE SHIFT ASSESSMENT.
[2018-12-03] MEDS ORDERED: XARELTO1 EACH PO (09:57)
[2018-12-03] MEDS ORDERED: DOXYCYCLINE100 M3 PO (09:57)
--- NOTE | 2018-12-03 10:45 | NUR ---
Discharge instructions reviewed with patient/family. Patient receptive and verbalizes understanding. Follow-up care arranged. Written instructions given to patient/family. HEPLOCK REMOVED 2X2 APPLIED. NELY STEWART
[2018-12-03] MEDS ORDERED: XARE20MG PO (10:58)
--- NOTE | 2018-12-03 11:21 | NUR ---
PT ASSISTED VIA WHEELCHAIR FOR DISCHARGE.
== END 2018-12-03 11:21 | disposition home or self-care (01) | DRG 871 ==
LOC: ED 19:22 → EDHOLD 22:37 → 5E 22:37
PROVIDERS: Family Medicine; Internal Medicine; Nurse Practitioner; ADMIT Internal Medicine
DX: A41.9 Sepsis, unspecified organism (principal); N17.0 Acute kidney failure with tubular necrosis; L03.116 Cellulitis of left lower limb; E44.0 Moderate protein-calorie malnutrition; J98.11 Atelectasis; I82.412 Acute embolism and thrombosis of left femoral vein; Z68.41 Body mass index [BMI] 40.0-44.9, adult; I10 Essential (primary) hypertension; E78.2 Mixed hyperlipidemia; G25.81 Restless legs syndrome; R65.20 Severe sepsis without septic shock; M41.80 Other forms of scoliosis, site unspecified; G89.29 Other chronic pain; E11.65 Type 2 diabetes mellitus with hyperglycemia; M54.9 Dorsalgia, unspecified; E66.01 Morbid (severe) obesity due to excess calories; Z79.4 Long term (current) use of insulin; Z88.0 Allergy status to penicillin; Z98.49 Cataract extraction status, unspecified eye; Z88.8 Allergy status to other drugs, medicaments and biological substances; Z98.891 History of uterine scar from previous surgery; Z82.49 Family history of ischemic heart disease and other diseases of the circulatory system; Z87.891 Personal history of nicotine dependence; Z82.3 Family history of stroke; Z83.3 Family history of diabetes mellitus; Z80.6 Family history of leukemia; Z79.899 Other long term (current) drug therapy

== ENCOUNTER → 2019-01-17 | Outpatient (CLI) | payer MEDICARE ==
[~2019-01-17] MED LIST changes: +XARE20MG PO; +XARELTO1 EACH PO
== END | disposition home or self-care (01) ==
LOC: RESCLI 01:07
DX: Z12.11 Encounter for screening for malignant neoplasm of colon (principal); F33.1 Major depressive disorder, recurrent, moderate; F41.9 Anxiety disorder, unspecified; E11.9 Type 2 diabetes mellitus without complications; I10 Essential (primary) hypertension; I82.512 Chronic embolism and thrombosis of left femoral vein; G89.4 Chronic pain syndrome; G25.81 Restless legs syndrome; Z79.4 Long term (current) use of insulin; Z79.899 Other long term (current) drug therapy

== ENCOUNTER → 2019-12-30 | Outpatient (CLI) | payer MEDICARE ==
[2019-12-30 15:16] LABS: BASO % 0.3 % (0.0-1.0); EOS # 0.1 10*3/uL (0.0-0.4); EOS % 0.7 % (1.0-4.0); HEMATOCRIT 39.9 % (37.0-47.0); LYMPH # 2.6 10*3/uL (1.3-4.4); LYMPH % 23.6 % (27.0-41.0); MEAN CELL VOLUME 85.3 fl (81.0-99.0); MEAN CORPUSCULAR HGB 28.6 pg (27.0-31.0); MEAN CORPUSCULAR HGB CONC 33.6 g/dl (33.0-37.0); MEAN PLATELET VOLUME 10.5 fl (9.6-12.3); MONO # 0.4 10*3/uL (0.1-1.0); MONO % 3.8 % (3.0-9.0); NEUT % 71.2 % (47.0-73.0); PLATELET COUNT AUTOMATED 231 10*3/uL (130-400); RED BLOOD COUNT 4.68 10*6/uL (4.10-5.10); RED CELL DISTRI WIDTH 13.6 % (0-14.5); WHITE BLOOD COUNT 11.2 10*3/uL (4.8-10.8)
[2019-12-30 15:34] LABS: ALBUMIN 3.5 gm/dl (3.1-4.5); CREATININE 1.31 mg/dL (0.55-1.02); POTASSIUM 4.4 mmol/L (3.5-5.1); TOTAL PROTEIN 7.4 gm/dL (6.4-8.2)
[2019-12-30 15:41] LABS: BILIRUBIN Negative (Negative); BLOOD 1+ (Negative); CLARITY Cloudy (Clear); COLOR Yellow (Yellow); GLUCOSE 3+ (Negative); KETONE Trace (Negative); LEUKO ESTERASE 2+ (Negative); NITRITE Negative (Negative); SPECIFIC GRAVITY >= 1.030 (1.001-1.030)
[2019-12-30 16:04] LABS: BACTERIA 2+; WBC 51-100 wbc/hpf (0-5)
== END | disposition home or self-care (01) ==
LOC: LAB 14:00 → US 14:30
PROVIDERS: ATTEND Urology
DX: N39.0 Urinary tract infection, site not specified (principal); E11.9 Type 2 diabetes mellitus without complications; N28.89 Other specified disorders of kidney and ureter

== ENCOUNTER → 2020-01-03 | Outpatient (CLI) | payer MEDICARE ==
[2020-01-03 13:55] LABS: BILIRUBIN Negative (Negative); BLOOD 1+ (Negative); CLARITY Cloudy (Clear); COLOR Yellow (Yellow); GLUCOSE 3+ (Negative); KETONE Negative (Negative); LEUKO ESTERASE 2+ (Negative); NITRITE Negative (Negative); SPECIFIC GRAVITY >= 1.030 (1.001-1.030)
[2020-01-03 14:30] LABS: EPITHELIAL CELLS 31-40; WBC 41-50 wbc/hpf (0-5)
[2020-01-03 14:31] LABS: BACTERIA 2+
== END | disposition home or self-care (01) ==
LOC: LAB 13:27
PROVIDERS: ATTEND Urology
DX: N39.0 Urinary tract infection, site not specified (principal)

== ENCOUNTER → 2020-10-26 | Outpatient (CLI) | payer MEDICARE | END | disposition home or self-care (01) | LOC: ORTHO 12:44 | PROVIDERS: ATTEND Orthopaedic Surgery | DX: M25.521 Pain in right elbow (principal) ==

== ENCOUNTER 2021-05-14 15:03 | Inpatient (IN) | payer MEDICARE, OTHER ==
[~2021-05-14] VITALS: Ht 152.4 cm; Wt 92.1 kg
[~2021-05-14 15:03] MED LIST changes: -REQUIP5 MG PO
[2021-05-14 15:10] VITALS: BP 157/79
[2021-05-14] MEDS ORDERED: OZEMPIC1 MG/0.71 SQ (15:24)
[2021-05-14] MEDS ORDERED: TRESIBA FL200 UNIT/1 SQ (15:24)
[2021-05-14] MEDS ORDERED: ROSUVASTATIN CAL5 MG PO (15:24)
[2021-05-14 16:27] LABS: BASO % 0.2 % (0.0-1.0); EOS # 0.1 10*3/uL (0.0-0.4); EOS % 0.8 % (1.0-4.0); HEMATOCRIT 39.1 % (37.0-47.0); LYMPH % 18.4 % (27.0-41.0); MEAN CELL VOLUME 86.9 fl (81.0-99.0); MEAN CORPUSCULAR HGB 29.1 pg (27.0-31.0); MEAN CORPUSCULAR HGB CONC 33.5 g/dl (33.0-37.0); MEAN PLATELET VOLUME 10.3 fl (9.6-12.3); MONO # 0.5 10*3/uL (0.1-1.0); MONO % 4.7 % (3.0-9.0); NEUT % 74.6 % (47.0-73.0); PLATELET COUNT AUTOMATED 240 10*3/uL (130-400); RED CELL DISTRI WIDTH 13.5 % (0-14.5); WHITE BLOOD COUNT 10.7 10*3/uL (4.8-10.8)
[2021-05-14 16:39] LABS: BILIRUBIN Negative (Negative); BLOOD Trace-Lysed (Negative); CLARITY Cloudy (Clear); COLOR Yellow (Yellow); GLUCOSE 3+ (Negative); KETONE Negative (Negative); LEUKO ESTERASE 2+ (Negative); NITRITE Negative (Negative); PH 6.5 (4.5-8.0); SPECIFIC GRAVITY 1.025 (1.001-1.030); UROBILINOGEN 0.2 E.U./dl (0.0-1.0)
[2021-05-14 16:43] LABS: ACT PARTIAL THROMBO TIME 25.7 SECONDS (20.0-32.1)
[2021-05-14 16:45] LABS: ALKALINE PHOSPHATASE 108 U/L (45-117); BUN 22 mg/dl (7-24); CHLORIDE 97 mmol/L (98-107); POTASSIUM 4.4 mmol/L (3.5-5.1); SGOT/AST 11 IU/L (3-35); SGPT/ALT 16 U/L (12-78); SODIUM 133 mmol/L (136-145); TOTAL PROTEIN 7.4 gm/dL (6.4-8.2)
[2021-05-14 18:30] VITALS: BP 141/87
[2021-05-14 19:16] LABS: BACTERIA 2+; EPITHELIAL CELLS 16-20; RBC 21-30 rbc/hpf (0-2); WBC 41-50 wbc/hpf (0-5)
[2021-05-15] VITALS: BP 134/78
[2021-05-15 06:17] LABS: BASO % 0.2 % (0.0-1.0); EOS # 0.2 10*3/uL (0.0-0.4); EOS % 1.3 % (1.0-4.0); HEMATOCRIT 42.7 % (37.0-47.0); LYMPH # 3.4 10*3/uL (1.3-4.4); LYMPH % 25.1 % (27.0-41.0); MEAN CELL VOLUME 86.8 fl (81.0-99.0); MEAN CORPUSCULAR HGB 29.1 pg (27.0-31.0); MEAN CORPUSCULAR HGB CONC 33.5 g/dl (33.0-37.0); MEAN PLATELET VOLUME 10.2 fl (9.6-12.3); MONO # 0.6 10*3/uL (0.1-1.0); MONO % 4.2 % (3.0-9.0); NEUT # 9.1 10*3/uL (2.3-7.9); NEUT % 68.5 % (47.0-73.0); PLATELET COUNT AUTOMATED 272 10*3/uL (130-400); RED BLOOD COUNT 4.92 10*6/uL (4.10-5.10); RED CELL DISTRI WIDTH 13.6 % (0-14.5); WHITE BLOOD COUNT 13.3 10*3/uL (4.8-10.8)
[2021-05-15 06:39] LABS: BUN 15 mg/dl (7-24); CHLORIDE 101 mmol/L (98-107); CHOLESTEROL 204 mg/dL (<200); CREATININE 0.59 mg/dL (0.55-1.02); LDL CHOLESTEROL 126 mg/dL (9-159); POTASSIUM 4.9 mmol/L (3.5-5.1); SODIUM 133 mmol/L (136-145); TRIGLYCERIDES 134 mg/dl (<150)
[2021-05-15 08:00] VITALS: BP 119/38
[2021-05-15 12:00] VITALS: BP 134/54
[2021-05-15 16:00] VITALS: BP 117/59
[2021-05-15 20:00] VITALS: BP 132/57
[2021-05-16] VITALS: BP 152/75
[2021-05-16 05:24] LABS: ALKALINE PHOSPHATASE 84 U/L (45-117); BASO % 0.3 % (0.0-1.0); BUN 16 mg/dl (7-24); CHLORIDE 100 mmol/L (98-107); CREATININE 0.53 mg/dL (0.55-1.02); EOS # 0.2 10*3/uL (0.0-0.4); EOS % 1.7 % (1.0-4.0); HEMATOCRIT 37.3 % (37.0-47.0); LYMPH # 1.9 10*3/uL (1.3-4.4); LYMPH % 19.5 % (27.0-41.0); MEAN CELL VOLUME 85.6 fl (81.0-99.0); MEAN CORPUSCULAR HGB 28.7 pg (27.0-31.0); MEAN CORPUSCULAR HGB CONC 33.5 g/dl (33.0-37.0); MEAN PLATELET VOLUME 10.1 fl (9.6-12.3); MONO # 0.5 10*3/uL (0.1-1.0); MONO % 5.1 % (3.0-9.0); NEUT # 7.2 10*3/uL (2.3-7.9); NEUT % 72.7 % (47.0-73.0); PLATELET COUNT AUTOMATED 247 10*3/uL (130-400); POTASSIUM 4.2 mmol/L (3.5-5.1); RED BLOOD COUNT 4.36 10*6/uL (4.10-5.10); RED CELL DISTRI WIDTH 13.5 % (0-14.5); SGOT/AST 7 IU/L (3-35); SGPT/ALT 13 U/L (12-78); SODIUM 135 mmol/L (136-145); TOTAL PROTEIN 6.5 gm/dL (6.4-8.2)
[2021-05-16 08:26] VITALS: BP 127/57
[2021-05-16 12:00] VITALS: BP 130/50
[2021-05-16] MEDS ORDERED: VIBRAMYCIN HYC100 MG PO (13:05)
== END 2021-05-16 16:00 | disposition home or self-care (01) | DRG 603 ==
LOC: ED 15:03 → 5E 17:02 → EDHOLD 17:02 → 5E 17:38
PROVIDERS: Emergency Medicine; Internal Medicine; ADMIT Internal Medicine; ATTEND Internal Medicine
DX: L03.115 Cellulitis of right lower limb (principal); E87.1 Hypo-osmolality and hyponatremia; N39.0 Urinary tract infection, site not specified; I10 Essential (primary) hypertension; Z79.4 Long term (current) use of insulin; E78.5 Hyperlipidemia, unspecified; R31.9 Hematuria, unspecified; M85.879 Other specified disorders of bone density and structure, unspecified ankle and foot; Z98.891 History of uterine scar from previous surgery; Z87.891 Personal history of nicotine dependence; Z79.899 Other long term (current) drug therapy; E11.65 Type 2 diabetes mellitus with hyperglycemia

== ENCOUNTER 2021-05-16 20:34 | Emergency (ER) | payer MEDICARE, OTHER ==
[~2021-05-16] VITALS: Wt 92.1 kg
[~2021-05-16 20:34] MED LIST changes: +OZEMPIC1 MG/0.71 SQ; +ROSUVASTATIN CAL5 MG PO; +TRESIBA FL200 UNIT/1 SQ; +VIBRAMYCIN HYC100 MG PO
[2021-05-16 21:25] LABS: BASO # 0.1 10*3/uL (0.0-0.1); BASO % 0.3 % (0.0-1.0); EOS # 0.1 10*3/uL (0.0-0.4); EOS % 0.5 % (1.0-4.0); HEMATOCRIT 40.5 % (37.0-47.0); LYMPH % 6.9 % (27.0-41.0); MEAN CELL VOLUME 86.2 fl (81.0-99.0); MEAN CORPUSCULAR HGB 28.9 pg (27.0-31.0); MEAN CORPUSCULAR HGB CONC 33.6 g/dl (33.0-37.0); MEAN PLATELET VOLUME 10.1 fl (9.6-12.3); MONO # 0.6 10*3/uL (0.1-1.0); NEUT # 12.8 10*3/uL (2.3-7.9); NEUT % 87.9 % (47.0-73.0); PLATELET COUNT AUTOMATED 261 10*3/uL (130-400); RED CELL DISTRI WIDTH 13.2 % (0-14.5); WHITE BLOOD COUNT 14.6 10*3/uL (4.8-10.8)
[2021-05-16 21:42] LABS: ALKALINE PHOSPHATASE 102 U/L (45-117); BUN 19 mg/dl (7-24); CHLORIDE 100 mmol/L (98-107); LIPASE 153 U/L (73-393); POTASSIUM 4.2 mmol/L (3.5-5.1); SGOT/AST 15 IU/L (3-35); SGPT/ALT 16 U/L (12-78); SODIUM 133 mmol/L (136-145); TOTAL PROTEIN 7.7 gm/dL (6.4-8.2)
[2021-05-16 23:32] VITALS: BP 142/86
== END 2021-05-16 23:39 | disposition short-term general hospital (02) ==
LOC: ED 20:34
PROVIDERS: Internal Medicine
DX: N13.2 Hydronephrosis with renal and ureteral calculous obstruction (principal); N13.4 Hydroureter; Z88.0 Allergy status to penicillin; Z88.8 Allergy status to other drugs, medicaments and biological substances; Z79.899 Other long term (current) drug therapy; Z90.89 Acquired absence of other organs; Z98.890 Other specified postprocedural states; Z87.891 Personal history of nicotine dependence

== ENCOUNTER → 2021-06-09 | Outpatient (CLI) | payer MEDICARE, OTHER | END | disposition home or self-care (01) | LOC: RAD 11:15 | PROVIDERS: ATTEND Urology | DX: N20.0 Calculus of kidney (principal); M41.86 Other forms of scoliosis, lumbar region ==

== ENCOUNTER 2021-08-18 17:59 | Emergency (ER) | payer MEDICARE, OTHER ==
[~2021-08-18] VITALS: Ht 152.4 cm; Wt 87.1 kg
[2021-08-18 18:30] VITALS: BP 147/58
[2021-08-18 19:13] LABS: BASO % 0.4 % (0.0-1.0); EOS # 0.1 10*3/uL (0.0-0.4); EOS % 1.1 % (1.0-4.0); HEMATOCRIT 35.6 % (37.0-47.0); LYMPH # 2.5 10*3/uL (1.3-4.4); LYMPH % 21.9 % (27.0-41.0); MEAN CELL VOLUME 85.2 fl (81.0-99.0); MEAN CORPUSCULAR HGB 29.2 pg (27.0-31.0); MEAN CORPUSCULAR HGB CONC 34.3 g/dl (33.0-37.0); MEAN PLATELET VOLUME 10.4 fl (9.6-12.3); MONO # 0.6 10*3/uL (0.1-1.0); MONO % 5.1 % (3.0-9.0); NEUT # 8.1 10*3/uL (2.3-7.9); NEUT % 71.1 % (47.0-73.0); PLATELET COUNT AUTOMATED 213 10*3/uL (130-400); RED BLOOD COUNT 4.18 10*6/uL (4.10-5.10); RED CELL DISTRI WIDTH 14.2 % (0-14.5); WHITE BLOOD COUNT 11.3 10*3/uL (4.8-10.8)
[2021-08-18 19:34] LABS: ALKALINE PHOSPHATASE 95 U/L (45-117); BUN 17 mg/dl (7-24); CHLORIDE 102 mmol/L (98-107); CREATININE 0.95 mg/dL (0.55-1.02); POTASSIUM 3.9 mmol/L (3.5-5.1); SGOT/AST 10 IU/L (3-35); SGPT/ALT 16 U/L (12-78); SODIUM 137 mmol/L (136-145); TOTAL PROTEIN 6.7 gm/dL (6.4-8.2)
== END 2021-08-18 22:20 | disposition home or self-care (01) ==
LOC: ED 17:59
PROVIDERS: Physician Assistant
DX: H54.61 Unqualified visual loss, right eye, normal vision left eye (principal); Z98.890 Other specified postprocedural states; Z79.899 Other long term (current) drug therapy; Z88.0 Allergy status to penicillin; Z88.8 Allergy status to other drugs, medicaments and biological substances

== ENCOUNTER → 2021-09-01 | Outpatient (CLI) | payer MEDICARE, OTHER | END | disposition home or self-care (01) | LOC: CARD 02:20 | PROVIDERS: ATTEND Ophthalmology Retina Specialist | DX: I08.0 Rheumatic disorders of both mitral and aortic valves (principal); H34.232 Retinal artery branch occlusion, left eye ==

== ENCOUNTER → 2021-09-06 | Outpatient (CLI) | payer MEDICARE, OTHER ==
[2021-09-12 00:05] LABS: BUSHITE 0.16 ratio (0.00-3.00); CALCIUM OXALATE 5.01 ratio (0.00-6.00); CALCIUM, URINE 54.3 mg/24 hr (0.0-320.0); CITRIC ACID (CITRATE) 193 mg/24 hr (320-1240); CREATININE, URINE 674.3 mg/24 hr (800.0-1800.0); MAGNESIUM, URINE 6.7 mg/dL (Not Estab.); MONOSODIUM URATE 0.61 ratio (0.00-4.00); OSMOLALITY, URINE 444 (300-900); SODIUM, URINE 48 (39-258); SODIUM, URINE 62 mmol/L (Not Estab.); STRUVITE 0.01 ratio (0.00-1.00); URIC ACID 3.08 ratio (0.00-1.20); pH 24 HR URINE 5.1 (4.5-8.0)
== END | disposition home or self-care (01) ==
LOC: LAB 10:22
PROVIDERS: ATTEND Urology
DX: N20.0 Calculus of kidney (principal); R31.9 Hematuria, unspecified

== ENCOUNTER 2021-11-17 15:21 | Emergency (ER) | payer MEDICARE, OTHER ==
[~2021-11-17] VITALS: Ht 162.5 cm; Wt 86.2 kg
[2021-11-17 16:13] LABS: BASO % 0.3 % (0.0-1.0); EOS # 0.1 10*3/uL (0.0-0.4); EOS % 1.1 % (1.0-4.0); HEMATOCRIT 36.6 % (37.0-47.0); LYMPH # 2.2 10*3/uL (1.3-4.4); LYMPH % 22.9 % (27.0-41.0); MEAN CELL VOLUME 87.6 fl (81.0-99.0); MEAN CORPUSCULAR HGB 29.9 pg (27.0-31.0); MEAN CORPUSCULAR HGB CONC 34.2 g/dl (33.0-37.0); MEAN PLATELET VOLUME 10.3 fl (9.6-12.3); MONO # 0.5 10*3/uL (0.1-1.0); MONO % 5.3 % (3.0-9.0); NEUT # 6.6 10*3/uL (2.3-7.9); NEUT % 70.2 % (47.0-73.0); PLATELET COUNT AUTOMATED 223 10*3/uL (130-400); RED BLOOD COUNT 4.18 10*6/uL (4.10-5.10); RED CELL DISTRI WIDTH 14.1 % (0-14.5); WHITE BLOOD COUNT 9.4 10*3/uL (4.8-10.8)
[2021-11-17 16:34] LABS: ACT PARTIAL THROMBO TIME 24.8 SECONDS (20.0-32.1)
[2021-11-17 16:38] LABS: ALKALINE PHOSPHATASE 80 U/L (45-117); BUN 14 mg/dl (7-24); CHLORIDE 111 mmol/L (98-107); POTASSIUM 3.3 mmol/L (3.5-5.1); SGOT/AST 16 IU/L (3-35); SGPT/ALT 22 U/L (12-78); SODIUM 143 mmol/L (136-145); TOTAL PROTEIN 6.5 gm/dL (6.4-8.2)
[2021-11-17 17:25] LABS: BILIRUBIN Negative (Negative); BLOOD 2+ (Negative); CLARITY Cloudy (Clear); COLOR Yellow (Yellow); GLUCOSE Trace (Negative); KETONE Trace (Negative); LEUKO ESTERASE 2+ (Negative); NITRITE Positive (Negative); PH 5.5 (4.5-8.0); UROBILINOGEN 0.2 E.U./dl (0.0-1.0)
[2021-11-17 17:52] LABS: BACTERIA 4+; EPITHELIAL CELLS 51-100; RBC TNTC rbc/hpf (0-2); WBC TNTC wbc/hpf (0-5)
[2021-11-17 20:27] VITALS: BP 96/44
== END 2021-11-17 18:32 | disposition short-term general hospital (02) ==
LOC: ED 15:21
PROVIDERS: Emergency Medicine
DX: R55 Syncope and collapse (principal); R41.82 Altered mental status, unspecified; R51.9 Headache, unspecified; R20.0 Anesthesia of skin; H57.12 Ocular pain, left eye; I10 Essential (primary) hypertension; E78.5 Hyperlipidemia, unspecified; E11.9 Type 2 diabetes mellitus without complications; R53.1 Weakness; Z88.8 Allergy status to other drugs, medicaments and biological substances; Z88.0 Allergy status to penicillin; Z79.2 Long term (current) use of antibiotics; Z79.4 Long term (current) use of insulin; Z79.899 Other long term (current) drug therapy; Z86.718 Personal history of other venous thrombosis and embolism; Z87.442 Personal history of urinary calculi; Z98.890 Other specified postprocedural states; Z90.89 Acquired absence of other organs; Z87.891 Personal history of nicotine dependence; V47.5XXA Car driver injured in collision with fixed or stationary object in traffic accident, initial encounter; Y93.I9 Activity, other involving external motion; Y92.098 Other place in other non-institutional residence as the place of occurrence of the external cause; Y99.8 Other external cause status

== ENCOUNTER → 2022-08-08 | Outpatient (CLI) | payer MEDICARE, OTHER ==
[~2022-08-08] MED LIST changes: +ESCITALOPRAM OXA5 MG PO; +MELATONIN5 M6 PO; +MYRBETRIQ50 M1 PO; +OZEMPIC2 MG/0.71 SQ; +REPATHA SU140 MG/1 M SQ; +VIBRAMYCIN100 MG PO; +VITAMIN D3125 MCG PO
== END | disposition home or self-care (01) ==
LOC: WOUNDCARE 01:02
PROVIDERS: ATTEND Podiatrist Foot & Ankle Surgery
DX: E10.622 Type 1 diabetes mellitus with other skin ulcer (principal); L97.321 Non-pressure chronic ulcer of left ankle limited to breakdown of skin; E10.621 Type 1 diabetes mellitus with foot ulcer; L97.511 Non-pressure chronic ulcer of other part of right foot limited to breakdown of skin; L97.412 Non-pressure chronic ulcer of right heel and midfoot with fat layer exposed; L97.421 Non-pressure chronic ulcer of left heel and midfoot limited to breakdown of skin; L84 Corns and callosities; E10.51 Type 1 diabetes mellitus with diabetic peripheral angiopathy without gangrene; I10 Essential (primary) hypertension; G25.81 Restless legs syndrome; F32.A Depression, unspecified; Z98.42 Cataract extraction status, left eye; Z86.73 Personal history of transient ischemic attack (TIA), and cerebral infarction without residual deficits

== ENCOUNTER → 2022-08-22 | Outpatient (CLI) | payer MEDICARE, OTHER | LOC: WOUNDCARE 01:35 | PROVIDERS: ATTEND Podiatrist Foot & Ankle Surgery | DX: E11.621 Type 2 diabetes mellitus with foot ulcer (principal); L97.511 Non-pressure chronic ulcer of other part of right foot limited to breakdown of skin; L97.521 Non-pressure chronic ulcer of other part of left foot limited to breakdown of skin; L97.411 Non-pressure chronic ulcer of right heel and midfoot limited to breakdown of skin; L97.421 Non-pressure chronic ulcer of left heel and midfoot limited to breakdown of skin; L84 Corns and callosities; E11.51 Type 2 diabetes mellitus with diabetic peripheral angiopathy without gangrene; I10 Essential (primary) hypertension; F32.A Depression, unspecified; G25.81 Restless legs syndrome; Z86.73 Personal history of transient ischemic attack (TIA), and cerebral infarction without residual deficits; Z98.42 Cataract extraction status, left eye ==

== ENCOUNTER → 2022-08-29 | Outpatient (CLI) | payer MEDICARE, OTHER | END | disposition home or self-care (01) | LOC: WOUNDCARE 01:42 | PROVIDERS: ATTEND Podiatrist Foot & Ankle Surgery | DX: S80.221A Blister (nonthermal), right knee, initial encounter (principal); E10.622 Type 1 diabetes mellitus with other skin ulcer; L97.511 Non-pressure chronic ulcer of other part of right foot limited to breakdown of skin; L97.521 Non-pressure chronic ulcer of other part of left foot limited to breakdown of skin; E10.51 Type 1 diabetes mellitus with diabetic peripheral angiopathy without gangrene; I10 Essential (primary) hypertension; G25.81 Restless legs syndrome; F32.A Depression, unspecified; Z86.73 Personal history of transient ischemic attack (TIA), and cerebral infarction without residual deficits; Z98.42 Cataract extraction status, left eye; X58.XXXA Exposure to other specified factors, initial encounter; Y93.89 Activity, other specified; Y92.89 Other specified places as the place of occurrence of the external cause; Y99.8 Other external cause status ==

== ENCOUNTER → 2022-10-19 | Outpatient (CLI) | payer OTHER | END | disposition home or self-care (01) | LOC: US 14:29 | PROVIDERS: ATTEND Podiatrist | DX: I82.403 Acute embolism and thrombosis of unspecified deep veins of lower extremity, bilateral (principal); Z72.0 Tobacco use; R60.0 Localized edema ==

== ENCOUNTER → 2023-07-28 | Outpatient (CLI) | payer OTHER ==
[~2023-07-28] MED LIST changes: +ASPIRIN ADULT L81 M2 PO; +DOXYCYCLINE MO100 MG PO; +TORSEMIDE20 MG PO; +TRESIBA100 UNIT/1 SQ
[2023-07-28 10:34] LABS: BUN 19 mg/dl (9-23); CHLORIDE 104 mmol/L (98-107); POTASSIUM 4.5 mmol/L (3.4-5.1)
== END | disposition home or self-care (01) ==
LOC: LAB 09:14
PROVIDERS: ATTEND Internal Medicine Cardiovascular Disease
DX: I50.9 Heart failure, unspecified (principal); M79.89 Other specified soft tissue disorders

== ENCOUNTER 2023-09-28 01:24 | Emergency (ER) | payer OTHER ==
[~2023-09-28] VITALS: Wt 112.9 kg
[2023-09-28] MEDS ORDERED: EPINEPHrine Hydrochloride 1 MG,IV 1 EA in SODIUM CHLORIDE 0.9% 250 ML IV SCH (01:35)
[2023-09-28 01:44] LABS: HEMATOCRIT 46.6 % (37.0-47.0); MEAN CELL VOLUME 100.2 fl (81.0-99.0); MEAN CORPUSCULAR HGB 28.6 pg (27.0-31.0); MEAN CORPUSCULAR HGB CONC 28.5 g/dl (33.0-37.0); MEAN PLATELET VOLUME 11.7 fl (9.6-12.3); NUCLEATED RED BLOOD CELL 0.2 10*3/uL (0.0-0.0); NUCLEATED RED BLOOD CELL 1.1 % (0.0-0.0); PLATELET COUNT AUTOMATED 161 10*3/uL (130-400); RED BLOOD COUNT 4.65 10*6/uL (4.10-5.10); WHITE BLOOD COUNT 14.9 10*3/uL (4.8-10.8)
[2023-09-28 01:45] LABS: MANUAL DIFF REFLEX YES
[2023-09-28 01:53] VITALS: BP 0/0
[2023-09-28 02:05] LABS: ACT PARTIAL THROMBO TIME 63.2 SECONDS (20.0-32.1)
[2023-09-28 02:14] LABS: PLATELET SUFFICIENCY NORMAL (NORMAL); TOTAL CELLS COUNTED 100 #CELLS
[2023-09-28 02:29] LABS: POTASSIUM 4.2 mmol/L (3.4-5.1)
[2023-09-28] MEDS ORDERED: EPINEPHrine Hydrochloride 1 MG/10 ML SYR IV ONE (10:16)
== END 2023-09-28 04:05 ==
LOC: ED 01:24
PROVIDERS: Student in an Organized Health Care Education/Training Program
DX: I46.9 Cardiac arrest, cause unspecified (principal); E11.9 Type 2 diabetes mellitus without complications; I25.10 Atherosclerotic heart disease of native coronary artery without angina pectoris; E78.5 Hyperlipidemia, unspecified; I10 Essential (primary) hypertension; Z86.73 Personal history of transient ischemic attack (TIA), and cerebral infarction without residual deficits; Z88.8 Allergy status to other drugs, medicaments and biological substances; Z88.0 Allergy status to penicillin; Z79.2 Long term (current) use of antibiotics; Z79.82 Long term (current) use of aspirin; Z79.899 Other long term (current) drug therapy; I25.2 Old myocardial infarction; Z86.718 Personal history of other venous thrombosis and embolism; Z87.442 Personal history of urinary calculi; Z98.890 Other specified postprocedural states; Z90.89 Acquired absence of other organs; Z87.891 Personal history of nicotine dependence